=== PATIENT | female | born 1980 | race Caucasian/White ===

== ENCOUNTER 2023-12-12 07:30 | Outpatient (RCR) | payer BC, SELFPAY | END 2024-03-09 15:37 | disposition home or self-care (01) | PROVIDERS: Visit Provider Student in an Organized Health Care Education/Training Program | DX: M25.551 Pain in right hip (principal); G89.29 Other chronic pain; M62.89 Other specified disorders of muscle; M53.2X8 Spinal instabilities, sacral and sacrococcygeal region; M25.39 Other instability, other specified joint; M25.651 Stiffness of right hip, not elsewhere classified; G47.9 Sleep disorder, unspecified; Z51.89 Encounter for other specified aftercare | CPT/HCPCS: 97110; 97140; 97162 ==